=== PATIENT | male | born 1965 | race Caucasian/White ===

== ENCOUNTER 2021-01-15 19:09 | Inpatient (IN) | payer MEDICAID ==
[~2021-01-15] VITALS: Ht 170.2 cm; Wt 61.2 kg
[2021-01-15] MEDS ORDERED: MORPHINE SULFATE 4 MG/ML CPJ (NOT FOR IM USE) IV STA (21:41)
[2021-01-15 22:00] LABS: HEMATOCRIT. 22.1 % (42.0-52.0); HEMOGLOBIN. 7.4 g/dL (14.0-18.0); MEAN CORPUSCULAR HEMOGLOBIN 30.6 pg (28.0-32.0); MEAN CORPUSCULAR VOLUME 91.8 fL (80.0-94.0); MEAN PLATELET VOLUME 7.4 fl (7.4-10.4); PLATELET 338 x1000/uL (130-400); RED CELL DISTRIBUTION WIDTH 15.9 % (11.6-14.6)
[2021-01-15 22:05] LABS: CHLORIDE 105 mEq/L (98-107)
[2021-01-15] MEDS ORDERED: CEFAZOLIN 1000MG PREMIX 50 ML IV ONE (23:00)
[2021-01-15 23:03] LABS: PLATELET ESTIMATE NORMAL
[2021-01-16] VITALS (7 sets, daily range): BP systolic 97–129; BP diastolic 51–81
[2021-01-16] MEDS ORDERED: NALOXONE HCL 0.4MG/ML VIAL IV PRN (08:45)
[2021-01-16] MEDS ORDERED: ONDANSETRON HCL 4MG/2ML INJ IV PRN (09:00)
[2021-01-16] MEDS ORDERED: VANCOMYCIN 1250MG in DEXTROSE 5% WATER 250ML IV SCH (10:00)
[2021-01-16] MEDS: HYDROCODONE/ACETAMINOPHEN 5/325MG TABLET PO PRN ×3 (10:06→20:36)
[2021-01-16] MEDS: LEVOFLOXACIN 500MG PREMIX 100 ML IV SCH (10:54)
[2021-01-16 11:50] LABS: TOTAL IRON BINDING CAPACITY 293 ug/dL (250-450)
[2021-01-16] MEDS: VANCOMYCIN 1 G PREMIX 200 ML IV SCH (17:22)
[2021-01-17] VITALS: BP 117/68
[2021-01-17 04:00] VITALS: BP 141/97
[2021-01-17 08:00] VITALS: BP 125/81
[2021-01-17] MEDS: VANCOMYCIN 1 G PREMIX 200 ML IV SCH (09:28)
[2021-01-17] MEDS: HYDROCODONE/ACETAMINOPHEN 5/325MG TABLET PO PRN ×2 (09:28→21:34)
[2021-01-17] MEDS: LEVOFLOXACIN 500MG PREMIX 100 ML IV SCH (09:32)
[2021-01-17 12:00] VITALS: BP 115/58
[2021-01-17 16:00] VITALS: BP 135/72
[2021-01-17] MEDS: VANCOMYCIN 750 MG PREMIX 150 ML IV SCH (17:10)
[2021-01-17 20:00] VITALS: BP 140/82
[2021-01-18] VITALS (9 sets, daily range): BP systolic 100–149; BP diastolic 52–89
[2021-01-18] MEDS: VANCOMYCIN 750 MG PREMIX 150 ML IV SCH ×2 (01:46→10:31)
[2021-01-18 07:33] LABS: CHLORIDE 101 mEq/L (98-107)
[2021-01-18 08:15] LABS: HEMATOCRIT 19.5 % (42.0-52.0); HEMOGLOBIN 6.5 g/dL (14.0-18.0)
[2021-01-18] MEDS: DOCUSATE SODIUM 100MG CAPSULE PO SCH ×2 (09:03→18:10)
[2021-01-18] MEDS: FERROUS SULFATE 325MG TABLET PO SCH ×3 (09:03→18:10)
[2021-01-18] MEDS: LEVOFLOXACIN 500MG PREMIX 100 ML IV SCH (10:31)
[2021-01-18] MEDS: ACETAMINOPHEN 325MG TABLET PO PRN (11:27)
[2021-01-18] MEDS ORDERED: IOHEXOL-350 100 ML BOTTLE ONE (14:13)
[2021-01-18] MEDS: PANTOPRAZOLE SODIUM 40 MG/VIAL IV SCH (18:26)
[2021-01-18 22:40] LABS: *AMPHETAMINES SCREEN URINE NEGATIVE (NEGATIVE); *BARBITURATES SCREEN URINE NEGATIVE (NEGATIVE); *BENZODIAZEPINES SCREEN URINE NEGATIVE (NEGATIVE); *COCAINE SCREEN URINE NEGATIVE (NEGATIVE); CANNABINOID URINE SCREEN NEGATIVE (NEGATIVE); METHADONE URINE SCREEN NEGATIVE (NEGATIVE); OPIATES URINE SCREEN PRESUMTIVE POSITIVE (NEGATIVE); PHENCYCLIDINE URINE SCREEN NEGATIVE (NEGATIVE)
[2021-01-19] VITALS: BP 149/89
[2021-01-19] MEDS ORDERED: CLONIDINE 0.1MG TABLET PO PRN (00:30)
[2021-01-19] MEDS: ACETAMINOPHEN 325MG TABLET PO PRN ×2 (00:45→16:09)
[2021-01-19 01:24] LABS: HEMATOCRIT 21.9 % (42.0-52.0); HEMOGLOBIN 7.5 g/dL (14.0-18.0)
[2021-01-19] MEDS: HYDROCODONE/ACETAMINOPHEN 5/325MG TABLET PO PRN (02:21)
[2021-01-19] MEDS: IPRATROPIUM/ALBUTEROL 0.5-3(2.5)MG/3ML NEB HHN PRN ×2 (02:29→16:19)
[2021-01-19 04:00] VITALS: BP 121/72
[2021-01-19 06:17] LABS: CHLORIDE 103 mEq/L (98-107)
[2021-01-19 06:24] LABS: TOTAL IRON BINDING CAPACITY 588 ug/dL (250-450)
[2021-01-19 06:39] LABS: FOLIC ACID (FOLATE) SERUM 8.1 ng/mL (>5.38)
[2021-01-19 06:52] LABS: HEPATITIS B SURFACE ANTIGEN NEGATIVE
[2021-01-19 07:10] LABS: BASOPHILS % 0.8 % (0.0-2.0); EOSINOPHILS % 3.6 % (0.0-5.0); HEMATOCRIT. 23.9 % (42.0-52.0); LYMPHOCYTES % 12.3 % (20.0-50.0); MEAN CORPUSCULAR HEMOGLOBIN 31.1 pg (28.0-32.0); MEAN CORPUSCULAR VOLUME 92.8 fL (80.0-94.0); MONOCYTES % 7.3 % (2.0-8.0); PLATELET 254 x1000/uL (130-400); RED BLOOD CELL COUNT 2.58 mill/uL (4.7-6.1); RED CELL DISTRIBUTION WIDTH 15.9 % (11.6-14.6)
[2021-01-19 08:00] VITALS: BP 113/73
[2021-01-19] MEDS: PANTOPRAZOLE SODIUM 40 MG/VIAL IV SCH (09:28)
[2021-01-19] MEDS: DOCUSATE SODIUM 100MG CAPSULE PO SCH ×2 (09:28→16:40)
[2021-01-19] MEDS: FERROUS SULFATE 325MG TABLET PO SCH ×3 (09:28→16:40)
[2021-01-19 12:08] VITALS: BP 149/94
[2021-01-19] MEDS: ASCORBIC ACID 500 MG TABLET PO SCH (14:43)
[2021-01-19 16:01] VITALS: BP 158/98
[2021-01-19 20:02] VITALS: BP 104/65
[2021-01-20 00:05] VITALS: BP 119/65
[2021-01-20 04:00] VITALS: BP 145/87
[2021-01-20 07:56] VITALS: BP 119/81
[2021-01-20] MEDS: ASCORBIC ACID 500 MG TABLET PO SCH (08:08)
[2021-01-20] MEDS: PANTOPRAZOLE SODIUM 40 MG/VIAL IV SCH (08:08)
[2021-01-20] MEDS: FERROUS SULFATE 325MG TABLET PO SCH ×3 (08:08→16:47)
[2021-01-20] MEDS: DOCUSATE SODIUM 100MG CAPSULE PO SCH ×2 (08:08→16:47)
[2021-01-20 11:53] VITALS: BP 138/95
[2021-01-20 16:00] VITALS: BP 144/93
[2021-01-20 20:00] VITALS: BP 151/94
[2021-01-20] MEDS: HYDROCODONE/ACETAMINOPHEN 5/325MG TABLET PO PRN (22:28)
[2021-01-21] VITALS: BP 149/108
[2021-01-21 04:00] VITALS: BP 141/88
[2021-01-21 08:00] VITALS: BP 137/84
[2021-01-21] MEDS: PANTOPRAZOLE SODIUM 40 MG/VIAL IV SCH (08:10)
[2021-01-21] MEDS: FERROUS SULFATE 325MG TABLET PO SCH ×3 (08:10→17:22)
[2021-01-21] MEDS: DOCUSATE SODIUM 100MG CAPSULE PO SCH ×2 (08:10→17:22)
[2021-01-21] MEDS: ASCORBIC ACID 500 MG TABLET PO SCH (08:10)
[2021-01-21 12:00] VITALS: BP 124/71
[2021-01-21 16:00] VITALS: BP 122/69
[2021-01-21 16:25] LABS: BASOPHILS % 0.7 % (0.0-2.0); EOSINOPHILS % 5.1 % (0.0-5.0); HEMATOCRIT. 22.5 % (42.0-52.0); HEMOGLOBIN. 7.5 g/dL (14.0-18.0); LYMPHOCYTES % 13.5 % (20.0-50.0); MEAN CORPUSCULAR HEMOGLOBIN 30.6 pg (28.0-32.0); MEAN CORPUSCULAR VOLUME 91.7 fL (80.0-94.0); MEAN PLATELET VOLUME 8.9 fl (7.4-10.4); MONOCYTES % 8.5 % (2.0-8.0); NEUTROPHILS % 72.2 % (40.0-76.0); PLATELET 311 x1000/uL (130-400); RED BLOOD CELL COUNT 2.46 mill/uL (4.7-6.1); RED CELL DISTRIBUTION WIDTH 16.1 % (11.6-14.6)
[2021-01-21 16:39] LABS: CHLORIDE 103 mEq/L (98-107)
[2021-01-21 20:00] VITALS: BP 160/89
[2021-01-22] VITALS: BP 117/72
[2021-01-22 04:00] VITALS: BP 138/72
[2021-01-22 06:29] LABS: CHLORIDE 101 mEq/L (98-107)
[2021-01-22 06:42] LABS: BASOPHILS % 0.8 % (0.0-2.0); EOSINOPHILS % 6.1 % (0.0-5.0); HEMATOCRIT. 23.5 % (42.0-52.0); LYMPHOCYTES % 14.3 % (20.0-50.0); MEAN CORPUSCULAR HEMOGLOBIN 30.9 pg (28.0-32.0); MEAN CORPUSCULAR VOLUME 90.6 fL (80.0-94.0); MEAN PLATELET VOLUME 8.9 fl (7.4-10.4); NEUTROPHILS % 70.8 % (40.0-76.0); PLATELET 351 x1000/uL (130-400); RED BLOOD CELL COUNT 2.59 mill/uL (4.7-6.1); RED CELL DISTRIBUTION WIDTH 15.4 % (11.6-14.6)
[2021-01-22] MEDS: FERROUS SULFATE 325MG TABLET PO SCH ×4 (07:40→17:42)
[2021-01-22] MEDS ORDERED: MIDAZOLAM HCL 2 MG/2 ML VIAL ONE (07:53)
[2021-01-22] MEDS ORDERED: FENTANYL CITRATE/PF 50MCG/ML 2ML VIAL ONE (07:53)
[2021-01-22] MEDS ORDERED: HEPARIN 1000 UNITS/ML 10ML ONE (07:53)
[2021-01-22] MEDS ORDERED: LIDOCAINE HCL 1% 10 MG/ML 10ML VIAL ONE (07:53)
[2021-01-22] MEDS ORDERED: IOHEXOL-300 100 ML BOTTLE ONE (07:54)
[2021-01-22] MEDS ORDERED: IODIXANOL 320MG/ML 100 ML BOTTLE IV ONE ×2 (07:54→08:33)
[2021-01-22 08:00] VITALS: BP 106/75
[2021-01-22] MEDS: DOCUSATE SODIUM 100MG CAPSULE PO SCH ×3 (09:00→17:42)
[2021-01-22] MEDS: PANTOPRAZOLE SODIUM 40 MG/VIAL IV SCH (09:32)
[2021-01-22] MEDS: ASCORBIC ACID 500 MG TABLET PO SCH (09:51)
[2021-01-22 12:00] VITALS: BP 116/71
[2021-01-22 16:00] VITALS: BP 142/83
[2021-01-22 20:00] VITALS: BP 134/90
[2021-01-23] VITALS: BP 113/65
[2021-01-23 04:00] VITALS: BP 127/76
[2021-01-23] MEDS ORDERED: DOCU-150 PO (07:40)
[2021-01-23] MEDS ORDERED: FERR325T23 MT (07:40)
[2021-01-23] MEDS ORDERED: ASCO500T20 PO (07:40)
[2021-01-23] MEDS ORDERED: OMEP20TA2 MT (07:40)
[2021-01-23 08:00] VITALS: BP 128/82
[2021-01-23] MEDS: FERROUS SULFATE 325MG TABLET PO SCH ×3 (08:51→17:26)
[2021-01-23] MEDS: PANTOPRAZOLE SODIUM 40 MG/VIAL IV SCH (08:51)
[2021-01-23] MEDS: DOCUSATE SODIUM 100MG CAPSULE PO SCH ×2 (08:51→17:26)
[2021-01-23] MEDS: ASCORBIC ACID 500 MG TABLET PO SCH (08:51)
[2021-01-23 12:00] VITALS: BP 106/66
[2021-01-23 16:00] VITALS: BP 104/72
[2021-01-23 16:35] LABS: BASOPHILS % 0.9 % (0.0-2.0); EOSINOPHILS % 8.2 % (0.0-5.0); HEMATOCRIT. 27.1 % (42.0-52.0); HEMOGLOBIN. 8.9 g/dL (14.0-18.0); LYMPHOCYTES % 15.4 % (20.0-50.0); MEAN CORPUSCULAR HEMOGLOBIN 29.6 pg (28.0-32.0); MEAN CORPUSCULAR VOLUME 90.5 fL (80.0-94.0); MEAN PLATELET VOLUME 9.1 fl (7.4-10.4); MONOCYTES % 8.5 % (2.0-8.0); PLATELET 434 x1000/uL (130-400); RED CELL DISTRIBUTION WIDTH 15.8 % (11.6-14.6)
[2021-01-23 16:40] LABS: CHLORIDE 100 mEq/L (98-107)
[2021-01-23] MEDS: BACITRACIN 15GM TUBE TOP SCH (17:26)
[2021-01-23 20:00] VITALS: BP 106/67
[2021-01-24] VITALS: BP 107/73
[2021-01-24 04:00] VITALS: BP 117/69
[2021-01-24 05:58] LABS: CHLORIDE 100 mEq/L (98-107)
[2021-01-24 06:27] LABS: EOSINOPHILS % 9.6 % (0.0-5.0); HEMATOCRIT. 26.6 % (42.0-52.0); HEMOGLOBIN. 8.8 g/dL (14.0-18.0); LYMPHOCYTES % 17.3 % (20.0-50.0); MEAN CORPUSCULAR HEMOGLOBIN 29.7 pg (28.0-32.0); MEAN CORPUSCULAR VOLUME 90.3 fL (80.0-94.0); MEAN PLATELET VOLUME 9.2 fl (7.4-10.4); MONOCYTES % 6.5 % (2.0-8.0); NEUTROPHILS % 65.6 % (40.0-76.0); PLATELET 434 x1000/uL (130-400); RED BLOOD CELL COUNT 2.95 mill/uL (4.7-6.1); RED CELL DISTRIBUTION WIDTH 15.6 % (11.6-14.6)
[2021-01-24 08:00] VITALS: BP 109/78
[2021-01-24] MEDS: PANTOPRAZOLE SODIUM 40 MG/VIAL IV SCH (09:16)
[2021-01-24] MEDS: FERROUS SULFATE 325MG TABLET PO SCH ×3 (09:16→19:00)
[2021-01-24] MEDS: DOCUSATE SODIUM 100MG CAPSULE PO SCH ×2 (09:17→17:00)
[2021-01-24] MEDS: ASCORBIC ACID 500 MG TABLET PO SCH (09:17)
[2021-01-24] MEDS: BACITRACIN 15GM TUBE TOP SCH (09:18)
[2021-01-24 12:00] VITALS: BP 117/71
[2021-01-24 16:00] VITALS: BP 122/68
[2021-01-24 20:00] VITALS: BP 123/86
[2021-01-25] VITALS: BP 110/70
[2021-01-25 04:00] VITALS: BP 120/82
[2021-01-25 08:00] VITALS: BP 106/53
[2021-01-25 08:01] LABS: BASOPHILS % 1.5 % (0.0-2.0); EOSINOPHILS % 7.7 % (0.0-5.0); HEMATOCRIT. 28.1 % (42.0-52.0); HEMOGLOBIN. 9.1 g/dL (14.0-18.0); LYMPHOCYTES % 18.1 % (20.0-50.0); MEAN CORPUSCULAR HEMOGLOBIN 29.4 pg (28.0-32.0); MEAN CORPUSCULAR VOLUME 90.3 fL (80.0-94.0); MONOCYTES % 7.1 % (2.0-8.0); NEUTROPHILS % 65.6 % (40.0-76.0); PLATELET 457 x1000/uL (130-400); RED BLOOD CELL COUNT 3.11 mill/uL (4.7-6.1); RED CELL DISTRIBUTION WIDTH 15.8 % (11.6-14.6)
[2021-01-25 08:15] LABS: CHLORIDE 101 mEq/L (98-107)
[2021-01-25] MEDS: DOCUSATE SODIUM 100MG CAPSULE PO SCH ×2 (08:32→17:30)
[2021-01-25] MEDS: ASCORBIC ACID 500 MG TABLET PO SCH (08:32)
[2021-01-25] MEDS: PANTOPRAZOLE SODIUM 40 MG/VIAL IV SCH (08:32)
[2021-01-25] MEDS: FERROUS SULFATE 325MG TABLET PO SCH ×3 (08:32→17:29)
[2021-01-25] MEDS: BACITRACIN 15GM TUBE TOP SCH (10:50)
[2021-01-25 12:00] VITALS: BP 112/80
[2021-01-25 16:00] VITALS: BP 105/70
[2021-01-25 20:00] VITALS: BP 113/70
[2021-01-26] VITALS: BP 102/57
[2021-01-26 04:00] VITALS: BP 109/5
[2021-01-26 08:00] VITALS: BP 117/75
[2021-01-26 08:42] LABS: BASOPHILS % 1.1 % (0.0-2.0); EOSINOPHILS % 6.7 % (0.0-5.0); HEMATOCRIT. 27.3 % (42.0-52.0); HEMOGLOBIN. 8.9 g/dL (14.0-18.0); LYMPHOCYTES % 17.5 % (20.0-50.0); MEAN CORPUSCULAR HEMOGLOBIN 29.1 pg (28.0-32.0); MEAN CORPUSCULAR VOLUME 89.3 fL (80.0-94.0); MONOCYTES % 8.8 % (2.0-8.0); NEUTROPHILS % 65.9 % (40.0-76.0); PLATELET 458 x1000/uL (130-400); RED BLOOD CELL COUNT 3.06 mill/uL (4.7-6.1); RED CELL DISTRIBUTION WIDTH 15.9 % (11.6-14.6)
[2021-01-26] MEDS: PANTOPRAZOLE SODIUM 40 MG/VIAL IV SCH (08:50)
[2021-01-26] MEDS: DOCUSATE SODIUM 100MG CAPSULE PO SCH ×2 (08:50→16:34)
[2021-01-26] MEDS: FERROUS SULFATE 325MG TABLET PO SCH ×3 (08:50→16:33)
[2021-01-26] MEDS: ASCORBIC ACID 500 MG TABLET PO SCH (08:50)
[2021-01-26 08:52] LABS: CHLORIDE 102 mEq/L (98-107)
[2021-01-26] MEDS: BACITRACIN 15GM TUBE TOP SCH (10:55)
[2021-01-26 12:00] VITALS: BP 114/71
[2021-01-26 16:10] VITALS: BP 107/67
[2021-01-26 20:00] VITALS: BP 116/72
[2021-01-27] VITALS: BP 124/65
[2021-01-27 04:00] VITALS: BP 120/75
[2021-01-27] MEDS: FERROUS SULFATE 325MG TABLET PO SCH ×3 (06:51→18:08)
[2021-01-27 07:21] LABS: BASOPHILS % 1.1 % (0.0-2.0); EOSINOPHILS % 6.7 % (0.0-5.0); HEMATOCRIT. 27.1 % (42.0-52.0); HEMOGLOBIN. 9.1 g/dL (14.0-18.0); MEAN CORPUSCULAR HEMOGLOBIN 29.8 pg (28.0-32.0); MEAN CORPUSCULAR VOLUME 88.8 fL (80.0-94.0); MEAN PLATELET VOLUME 8.8 fl (7.4-10.4); MONOCYTES % 7.9 % (2.0-8.0); NEUTROPHILS % 64.3 % (40.0-76.0); PLATELET 469 x1000/uL (130-400); RED BLOOD CELL COUNT 3.05 mill/uL (4.7-6.1); RED CELL DISTRIBUTION WIDTH 15.9 % (11.6-14.6)
[2021-01-27 07:30] LABS: CHLORIDE 102 mEq/L (98-107)
[2021-01-27 08:00] VITALS: BP 116/77
[2021-01-27] MEDS: DOCUSATE SODIUM 100MG CAPSULE PO SCH ×2 (11:04→18:08)
[2021-01-27] MEDS: ASCORBIC ACID 500 MG TABLET PO SCH (11:04)
[2021-01-27] MEDS: PANTOPRAZOLE SODIUM 40 MG/VIAL IV SCH (11:04)
[2021-01-27] MEDS: BACITRACIN 15GM TUBE TOP SCH (11:05)
[2021-01-27 12:00] VITALS: BP 114/75
[2021-01-27 16:00] VITALS: BP 115/76
[2021-01-27] MEDS: ACETAMINOPHEN 325MG TABLET PO PRN (18:08)
[2021-01-27 20:00] VITALS: BP 109/68
[2021-01-28] VITALS: BP 103/71
[2021-01-28 04:00] VITALS: BP 126/82
[2021-01-28] MEDS: FERROUS SULFATE 325MG TABLET PO SCH ×3 (06:50→17:24)
[2021-01-28 08:00] VITALS: BP 125/79
[2021-01-28] MEDS: PANTOPRAZOLE SODIUM 40 MG/VIAL IV SCH (08:42)
[2021-01-28] MEDS: ASCORBIC ACID 500 MG TABLET PO SCH (08:43)
[2021-01-28] MEDS: BACITRACIN 15GM TUBE TOP SCH (08:43)
[2021-01-28] MEDS: DOCUSATE SODIUM 100MG CAPSULE PO SCH ×2 (08:43→17:25)
[2021-01-28 12:00] VITALS: BP 118/78
[2021-01-28 16:00] VITALS: BP 102/67
[2021-01-28 20:00] VITALS: BP 110/78
[2021-01-29] VITALS: BP 110/71
[2021-01-29 04:00] VITALS: BP 114/69
[2021-01-29] MEDS: FERROUS SULFATE 325MG TABLET PO SCH ×3 (06:58→17:41)
[2021-01-29 08:00] VITALS: BP 118/79
[2021-01-29 08:52] LABS: EOSINOPHILS % 4.1 % (0.0-5.0); HEMOGLOBIN. 9.5 g/dL (14.0-18.0); LYMPHOCYTES % 19.3 % (20.0-50.0); MEAN CORPUSCULAR VOLUME 88.4 fL (80.0-94.0); MEAN PLATELET VOLUME 8.7 fl (7.4-10.4); MONOCYTES % 7.8 % (2.0-8.0); NEUTROPHILS % 67.8 % (40.0-76.0); PLATELET 508 x1000/uL (130-400); RED CELL DISTRIBUTION WIDTH 16.5 % (11.6-14.6)
[2021-01-29] MEDS: ASCORBIC ACID 500 MG TABLET PO SCH (08:58)
[2021-01-29] MEDS: DOCUSATE SODIUM 100MG CAPSULE PO SCH ×2 (08:58→17:41)
[2021-01-29] MEDS: BACITRACIN 15GM TUBE TOP SCH (09:01)
[2021-01-29 09:05] LABS: CHLORIDE 103 mEq/L (98-107)
[2021-01-29] MEDS: PANTOPRAZOLE SODIUM 40 MG/VIAL IV SCH (09:52)
[2021-01-29 12:00] VITALS: BP 110/75
[2021-01-29 16:00] VITALS: BP 113/71
[2021-01-29 20:00] VITALS: BP 114/72
[2021-01-30] VITALS: BP 111/71
[2021-01-30 04:00] VITALS: BP 110/71
[2021-01-30 07:22] LABS: EOSINOPHILS % 5.7 % (0.0-5.0); HEMATOCRIT. 30.5 % (42.0-52.0); HEMOGLOBIN. 9.6 g/dL (14.0-18.0); LYMPHOCYTES % 25.1 % (20.0-50.0); MEAN CORPUSCULAR VOLUME 88.9 fL (80.0-94.0); MEAN PLATELET VOLUME 8.8 fl (7.4-10.4); MONOCYTES % 7.3 % (2.0-8.0); NEUTROPHILS % 60.9 % (40.0-76.0); PLATELET 502 x1000/uL (130-400); RED BLOOD CELL COUNT 3.44 mill/uL (4.7-6.1); RED CELL DISTRIBUTION WIDTH 16.6 % (11.6-14.6)
[2021-01-30 07:26] LABS: CHLORIDE 103 mEq/L (98-107)
[2021-01-30] MEDS: DOCUSATE SODIUM 100MG CAPSULE PO SCH ×2 (09:00→17:00)
[2021-01-30] MEDS: ASCORBIC ACID 500 MG TABLET PO SCH (10:39)
[2021-01-30] MEDS: PANTOPRAZOLE SODIUM 40 MG/VIAL IV SCH (10:39)
[2021-01-30] MEDS: BACITRACIN 15GM TUBE TOP SCH (10:39)
[2021-01-30] MEDS: FERROUS SULFATE 325MG TABLET PO SCH ×4 (10:39→18:06)
[2021-01-30 12:00] VITALS: BP 105/70
[2021-01-30 16:00] VITALS: BP 112/69
[2021-01-30 20:00] VITALS: BP 113/70
[2021-01-31] VITALS: BP 117/75
[2021-01-31 04:00] VITALS: BP 121/79
[2021-01-31 08:00] VITALS: BP 118/78
[2021-01-31] MEDS: PANTOPRAZOLE SODIUM 40 MG/VIAL IV SCH (09:05)
[2021-01-31] MEDS: ASCORBIC ACID 500 MG TABLET PO SCH (09:05)
[2021-01-31] MEDS: FERROUS SULFATE 325MG TABLET PO SCH ×3 (09:05→17:24)
[2021-01-31] MEDS: DOCUSATE SODIUM 100MG CAPSULE PO SCH ×2 (09:05→17:24)
[2021-01-31] MEDS: BACITRACIN 15GM TUBE TOP SCH ×2 (09:06→09:16)
[2021-01-31 12:00] VITALS: BP 120/74
[2021-01-31 16:00] VITALS: BP 115/74
[2021-01-31 17:16] LABS: BASOPHILS % 1.2 % (0.0-2.0); EOSINOPHILS % 4.7 % (0.0-5.0); HEMATOCRIT. 30.8 % (42.0-52.0); LYMPHOCYTES % 20.8 % (20.0-50.0); MEAN CORPUSCULAR HEMOGLOBIN 28.6 pg (28.0-32.0); MEAN CORPUSCULAR VOLUME 87.8 fL (80.0-94.0); MEAN PLATELET VOLUME 8.5 fl (7.4-10.4); MONOCYTES % 7.6 % (2.0-8.0); NEUTROPHILS % 65.7 % (40.0-76.0); PLATELET 474 x1000/uL (130-400); RED BLOOD CELL COUNT 3.51 mill/uL (4.7-6.1); RED CELL DISTRIBUTION WIDTH 16.7 % (11.6-14.6)
[2021-01-31 17:25] LABS: CHLORIDE 104 mEq/L (98-107)
[2021-01-31 20:00] VITALS: BP 106/73
[2021-02-01] VITALS: BP 114/75
[2021-02-01 04:00] VITALS: BP 121/80
[2021-02-01 08:00] VITALS: BP 114/73
[2021-02-01] MEDS: FERROUS SULFATE 325MG TABLET PO SCH ×3 (08:45→16:34)
[2021-02-01] MEDS ORDERED: PANTOPRAZOLE 40MG DR TABLET PO SCH (08:45)
[2021-02-01] MEDS: DOCUSATE SODIUM 100MG CAPSULE PO SCH ×2 (08:45→16:34)
[2021-02-01] MEDS: ASCORBIC ACID 500 MG TABLET PO SCH (08:46)
[2021-02-01 12:00] VITALS: BP_SYST 105; BP_SYST 114; BP_DIAS 69; BP_DIAS 73
[2021-02-01 16:00] VITALS: BP 113/60
== END 2021-02-01 16:57 | DRG 182 ==
LOC: ER 19:09 → 8WST 01-16 00:28 → ENRESERV 01-16 04:08 → 6EST 01-25 12:25
PROVIDERS: ADMIT Internal Medicine; ATTEND Internal Medicine
PROC: 30233N1 Transfusion of Nonautologous Red Blood Cells into Peripheral Vein, Percutaneous Approach (ICD-10-PCS; 2021-01-18)
PROC: 047L35Z Dilation of Left Femoral Artery with Two Drug-eluting Intraluminal Devices, Percutaneous Approach (ICD-10-PCS; principal; 2021-01-22)
PROC: 04HK33Z Insertion of Infusion Device into Right Femoral Artery, Percutaneous Approach (ICD-10-PCS; 2021-01-22)
PROC: 04HD33Z Insertion of Infusion Device into Left Common Iliac Artery, Percutaneous Approach (ICD-10-PCS; 2021-01-22)
PROC: 04HL33Z Insertion of Infusion Device into Left Femoral Artery, Percutaneous Approach (ICD-10-PCS; 2021-01-22)
PROC: B41G1ZZ Fluoroscopy of Left Lower Extremity Arteries using Low Osmolar Contrast (ICD-10-PCS; 2021-01-22)
DX: I70.212 Atherosclerosis of native arteries of extremities with intermittent claudication, left leg (principal); E44.0 Moderate protein-calorie malnutrition; D50.9 Iron deficiency anemia, unspecified; F17.210 Nicotine dependence, cigarettes, uncomplicated; I10 Essential (primary) hypertension; S80.811A Abrasion, right lower leg, initial encounter; S90.422A Blister (nonthermal), left great toe, initial encounter; S80.812A Abrasion, left lower leg, initial encounter; Z20.822 Contact with and (suspected) exposure to COVID-19; X58.XXXA Exposure to other specified factors, initial encounter; Z79.899 Other long term (current) drug therapy; Z82.49 Family history of ischemic heart disease and other diseases of the circulatory system; Z68.21 Body mass index [BMI] 21.0-21.9, adult; Y93.89 Activity, other specified; Y92.89 Other specified places as the place of occurrence of the external cause; Y99.8 Other external cause status
CPT/HCPCS: 36415; 37226; 71045; 72191; 73706; 75710; 80048; 80053; 80202; 80305; 82270; 82607; 82728; 82746; 83540; 83550; 83880; 84484; 85014; 85018; 85025; 85044; 85347; 86705; 86709; 86803; 86850; 86900; 86920; 87340; 87426; 93005; 93306; 93922; 93970; 94640; 97162; 99291; C1760; C1769; C1876; C1893; C1894; C2623; C9113; J0690; J1644; J1956; J2250; J2270; J3010; J3370; J3490; J7040; J7060; P9016; Q9967